=== PATIENT | female | born 1950 | race African-American/Black ===

== ENCOUNTER 2021-08-12 08:00 | Outpatient (CLI) | payer MEDICARE ==
--- NOTE | 2021-08-13 01:07 | XRAY Report ---
PROCEDURE: Knee 3 View RT INDICATIONS: SPRAIN OF RIGHT KNEE TECHNIQUE: 3 views of the right knee(s) were acquired. COMPARISON: None. FINDINGS: Bones: No fractures or dislocations. No suspicious bony lesions. Severe degenerative arthritis with bulky tricompartment osteophytes and medial compartment joint space obliteration. Soft tissues: Small joint effusion. No suspicious soft tissue calcifications. IMPRESSION: Severe degenerative arthritis of the right knee. Reviewed by: Jose Simpson MD on 08/13/2021 1:06 AM [facility] Approved by: Jose Simpson MD on 08/13/2021 1:06 AM [facility] Station ID: [id number]
== END 2021-08-12 23:59 | disposition home or self-care (01) ==
LOC: DI.S 08:00
PROVIDERS: ATTEND Emergency Medicine
DX: M17.11 Unilateral primary osteoarthritis, right knee (principal)

== ENCOUNTER 2021-10-05 21:16 | Emergency (ER) | payer MEDICARE ==
[2021-10-05] MEDS ORDERED: PROMETHAZINE 25 MG/1 ML VIAL IM STA (22:43)
--- NOTE | 2021-10-05 22:48 | ED Physician Documentation ---
History of Present Illness - Stated complaint Stated Complaint: HIGH BP - Chief complaint Chief Complaint: Heent - History obtained from History obtained from: Patient, Family - Additonal information Additional information: Patient comes to the emergency department for chief complaint of headache and high blood pressure earlier today. The patient according to herself and family member who is accompanying her had a stressful morning this morning. She is originally from [facility] and had a stroke last month, and since then, a lot of her relatives and [facility] has been calling on a regular basis. Unfortunately, because of the time difference, they often are calling in the middle of the night, and the patient wakes up to take the calls. It seems there was a stressful in her action with a person the patient does not like from [facility] last night and the patient was very stressed out for the rest of the night and morning. She developed a left-sided headache and that radiated down into her neck and was a ccompanied by photophobia and sensitivity to noise. The patient denies any focal neurologic deficits. She states that she is feeling much better now. She did vomit after drinking her coffee this morning, but was able to eat dinner tonight without any problem. She is feeling better otherwise. She is still recovering from her stroke symptoms from last month, but is been showing improvement. Her relative who has accompanied her states that the son is going to remove the phone from the patient's room so that the relatives cannot call her in the middle of the night anymore. No other complaints at this time. Review of Systems Ten Systems: 10 systems reviewed and negative Constitutional: reports: Reviewed and negative Eyes: reports: Reviewed and negative Ears: reports: Reviewed and negative Nose: reports: Reviewed and negative Throat: reports: Reviewed and negative Cardiac: reports: Reviewed and negative Respiratory: reports: Reviewed and negative GI: reports: Nausea, Vomiting : reports: Reviewed and negative Skin: reports: Reviewed and negative Musculoskeletal: reports: Reviewed and negative Neurologic: reports: Headache Psychiatric: reports: Reviewed and negative Endocrine: reports: Reviewed and negative Immunocompromised: reports: Reviewed and negative PD PAST MEDICAL HISTORY - Past Medical History Cardiovascular: Hypertension Respiratory: None Neuro: CVA Endocrine/Autoimmune: None 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 : None HEENT: None Psych: None Musculoskeletal: None Derm: None - Past Surgical History Past Surgical History: No - Present Medications Home Medications: Ambulatory Orders Medication Instructions Recorded Confirmed Aspirin [[place] Aspirin EC] 81 mg PO DAILY 09/18/21 09/18/21 Atorvastatin Calcium 40 mg PO DAILY PM 09/18/21 09/18/21 Clopidogrel [Plavix] 75 mg PO DAILY #90 tablet 09/18/21 Losartan Potassium 25 mg PO DAILY 09/18/21 09/18/21 Metformin HCl [Metformin ER 1,000 mg PO BID 09/18/21 09/18/21 Gastric] glipiZIDE [Glucotrol] 2.5 mg PO BID 09/18/21 09/18/21 - Allergies Allergies/Adverse Reactions: Allergies Allergy/AdvReac Type Severity Reaction Status Date / Time No Known Drug Allergies Allergy Verified 09/18/21 09:35 - Social History Does the pt smoke?: No Smoking Status: Never smoker Does the pt drink ETOH?: No Does the pt have substance abuse?: No - Immunizations Immunizations are current?: No Immunizations: Other immun not current PD ED PE NORMAL - Vitals Vital signs reviewed: Yes - General General: Alert and oriented X 3, No acute distress, Well developed/nourished, Other (The patient is bright, alert, and cheerful in no apparent distress. 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 She has occasional word finding difficulty, which family states is at baseline, but otherwise, is able to articulate fairly well.) - Psych Psych: Normal mood, Normal affect Results - Vitals Vitals: Vital Signs - 24 hr 10/05/21 10/05/21 10/05/21 21:30 21:51 22:51 Temperature 36.0 C L 36.5 C 36.3 C L Heart Rate 73 73 75 Respiratory 18 18 23 Rate Blood Pressure 168/93 H 168/93 H 150/88 H O2 Saturation 97 97 96 Oxygen O2 Source Room air PD MEDICAL DECISION MAKING - ED course Complexity details: considered differential, d/w patient, d/w family ED course: The patient was well-appearing in the emergency department, and did not seem to have any acute stroke-like symptoms. She was treated with a dose of Phenergan for what I suspect is most likely migraine. The relative asked if the patient could be admitted to get away from the distractions at home, and I have discussed with her that the patient is not going to meet admission criteria. We have discussed the possibility of respite care, though this would not happen tonight. I think the phone being taken out of the patient's room is a good idea, along with setting some boundaries for family and friends in [facility], or perhaps setting up a call time which works for all parties. We have discussed the usual indications for return. Departure - Departure Disposition: 01 Home, Self Care Clinical Impression: Headache, migraine Qualifiers: Migraine type: unspecified Status migrainosus presence: without status migrainosus Intractability: not intractable Qualified Code(s): G43.909 - Migraine, unspecified, not intractable, without status migrainosus Headache, tension-type Qualifiers: Headache chronicity pattern: acute headache Intractability: not intractable Qualified Code(s): G44.209 - Tension-type headache, unspecified, not intractable Condition: Stable Instructions: ED Headache Tension, ED Headache Migraine
[2021-10-05 22:53] VITALS: BP 150/88
== END 2021-10-05 23:16 | disposition home or self-care (01) ==
LOC: ED 21:16
DX: G43.909 Migraine, unspecified, not intractable, without status migrainosus (principal); G44.209 Tension-type headache, unspecified, not intractable; Z63.79 Other stressful life events affecting family and household
CPT/HCPCS: 96372; 99282; 99283